=== PATIENT | female | born 1970 | race Caucasian/White ===

== ENCOUNTER 2018-05-18 10:27 | Outpatient (CLI) | payer OTHER | END 2018-05-18 10:28 | disposition home or self-care (01) | LOC: BICMAMMO 10:27 | PROVIDERS: ATTEND Nurse Practitioner Family | DX: Z12.31 Encounter for screening mammogram for malignant neoplasm of breast (principal); Z80.3 Family history of malignant neoplasm of breast | CPT/HCPCS: 77063; 77067 ==

== ENCOUNTER 2018-09-26 14:49 | Outpatient (CLI) | payer OTHER ==
--- NOTE | 2018-09-26 16:34 | RAD ---
RADIOGRAPH LEFT KNEE 4 VIEWS:: Date: 09/26/18 HISTORY: 48-year-old female with acute traumatic pain and swelling of the left knee after fall yesterday. COMPARISON: None. FINDINGS: There is a small joint effusion. No edema in Hoffa's fat pad. Joint spaces are maintained. Tiny osteo phytes at all three compartments. No fracture or dislocation. No destructive osseous lesion. IMPRESSION: 1. Small joint effusion. 2. Minimal/mild tricompartmental osteoarthrosis. 3. No fracture. POS: [facility]
== END 2018-09-26 14:50 | disposition home or self-care (01) ==
LOC: BICRAD 14:49
DX: M25.562 Pain in left knee (principal); M25.462 Effusion, left knee; M17.12 Unilateral primary osteoarthritis, left knee

== ENCOUNTER 2019-07-20 13:09 | Outpatient (CLI) | payer OTHER ==
--- NOTE | 2019-07-20 13:46 | RAD ---
XR Knee Rt 4 View STANDARD HISTORY: Acute pain of the right knee, fell one month ago FINDINGS: No fracture or dislocation is identified. No joint effusion is seen. A anterosuperior patellar enthes ophyte is present.
== END 2019-07-20 13:10 | disposition home or self-care (01) ==
LOC: BICRAD 13:09
PROVIDERS: ATTEND Nurse Practitioner Family
DX: M25.561 Pain in right knee (principal)

== ENCOUNTER 2019-07-31 14:51 | Outpatient (CLI) | payer OTHER ==
--- NOTE | 2019-07-31 17:33 | MRI ---
MRI OF RIGHT KNEE PERFORMED WITHOUT CONTRAST ENHANCEMENT: History: Knee pain. FINDINGS: The anterior as well as posterior cruciate ligaments are intact. The lateral meniscus has a normal shape and appearance. There is a tear involving the posterior horn of the medial meniscus. This has more of a radial orientation along the free aid of the posterior hor n. It has horizontal extension as a horizontally oriented tear or mucoid degeneration into the body o f the meniscus. The medial and lateral collateral ligaments and iliotibial band regions are unremarkable. Patellar articular cartilage shows some grade III to grade IV chondromalacia change in the medial fac et. The medial and lateral patellar retinaculum and quadriceps and patellar tendons are normal. IMPRESSION: Complex tear of the posterior horn and body region of the medial meniscus. This includes more of a ra dially oriented tear through the free edge of the midportion of the posterior horn with horizontal ex tension of the tear into the body of the meniscus. POS: [facility]
== END 2019-07-31 14:52 | disposition home or self-care (01) ==
LOC: SCSMRI 14:51
PROVIDERS: ATTEND Orthopaedic Surgery
DX: M25.561 Pain in right knee (principal); S83.231A Complex tear of medial meniscus, current injury, right knee, initial encounter

== ENCOUNTER 2019-09-28 08:46 | Day surgery (SDC) | payer OTHER ==
[2019-09-27 10:28] VITALS: BMI 30.2
[2019-09-28] MEDS ORDERED: Lidocaine 1% PF 5 ML VIAL ONE (09:34)
[2019-09-28] MEDS ORDERED: Dexamethasone 20 MG/5 ML VIAL ONE (09:34)
[2019-09-28] MEDS ORDERED: Ondansetron PF 4 MG/2 ML Vial ONE (09:34)
[2019-09-28] MEDS ORDERED: ePHEDrine/0.9% NaCl/PF SYRINGE 50 mg/10 ml ONE (09:34)
[2019-09-28] MEDS ORDERED: Metoclopramide HCl 10 MG/2 ML VIAL ONE (09:34)
[2019-09-28] MEDS ORDERED: PROPOFOL 200 MG/20 ML VIAL ONE (09:34)
[2019-09-28] MEDS ORDERED: Famotidine/PF 20 mg/2ml Vial ONE (10:14)
[2019-09-28] MEDS ORDERED: Midazolam HCl 2 mg/2 ml Vial ONE (10:14)
[2019-09-28] MEDS ORDERED: Ketorolac Tromethamine 30 MG/ML VIAL ONE (10:14)
[2019-09-28 10:21] LABS: Hemoglobin 11.5 g/dL (12.0-16.0); Mean Corpuscular HGB CONC 31.3 g/dL (32.0-36.0); Mean Corpuscular Hemoglobin 21.7 pg (27.0-31.0); Mean Corpuscular Volume 69.3 fL (78.0-98.0); Platelet Count 287 thou/uL (130-400); RBC Distribution Width 13.6 % (11.5-14.5); Red Blood Cell (RBC) Count 5.33 mill/uL (4.20-5.40); White Blood Cell (WBC) Count 6.1 thou/uL (4.8-10.8)
[2019-09-28 10:22] LABS: #Basophils 0.1 thou/uL (0.0-0.2); #Eosinphils 0.1 thou/uL (0.0-0.7); #Lymphocytes 2.3 thou/uL (1.20-3.40); #Monocytes 0.6 thou/uL (0.11-0.59); #Neutrophils 3.1 thou/uL (1.40-6.50); %Eosinophils 1.3 % (0.0-10.0); %Monocytes 9.5 % (0.0-10.0); %Neutrophils 51.2 % (42.0-75.0)
[2019-09-28] MEDS ORDERED: Fentanyl 100 MCG/2 ML VIAL ONE ×3 (10:27→11:44)
[2019-09-28] MEDS ORDERED: Lidocaine 1% w/Epinephrine 1:100K 20 ML VIAL ONE (10:35)
[2019-09-28] MEDS ORDERED: Bupivacaine 0.25% HCL 30 ML VIAL ONE (10:35)
[2019-09-28 11:14] LABS: Hypochromia SLIGHT = 6-15 cells (100X) (0-5/hpf); MDiff Complete? YES; Microcytosis MODERATE=15-30 cells (100X) (0-5/hpf); Ovalocytes SLIGHT = 2-5 cells (100X) (0-1/hpf); Platelet Morphology Comment Appears Adequate; Polychromasia SLIGHT = 2-3 cells (100X) (0-2/hpf)
[2019-09-28] MEDS ORDERED: Promethazine HCl 25 MG/ML VIAL IM/IV PRN (12:28)
[2019-09-28] MEDS ORDERED: Non-Formulary Medication 1 EACH PO PRN (12:28)
[2019-09-28] MEDS ORDERED: Ondansetron HCl/PF 4 MG/2 ML Vial IVP PRN (12:28)
--- NOTE | 2019-09-28 14:45 | OP ---
DATE OF PROCEDURE: 09/28/2019 PREOPERATIVE DIAGNOSIS: Right medial meniscus tear with chondromalacia. POSTOPERATIVE DIAGNOSES: 1. Right medial meniscus tear. 2. Grade 3 medial patellar changes. 3. Grade 1 medial femoral condyle changes. PROCEDURE PERFORMED: Medial meniscectomy. METAL BURNISHER: None. ANESTHESIOLOGIST: ANESTHESIA: The patient received a LMA with postprocedure. IMPLANTS: None. TOURNIQUET TIME: 19 minutes at 300 mmHg. ESTIMATED BLOOD LOSS: Less than 20 mL. ANTIBIOTICS: Ancef 2 g. COMPLICATIONS: None. HISTORY OF PRESENT ILLNESS: Ms. La is a 49-year-old female, who presented with knee pain. She has failed conservative measures and had MRI evidence of medial meniscus tear. I discussed with her the risks and benefits of arthroscopic evaluation of medial meniscectomy to include, pain, scar, bleeding, infection, arthritis, need for further surgeries, damage to vital structures, loss of life or limb, blood clots. The patient understood the risks and benefits and elected to proceed. DESCRIPTION OF PROCEDURE: Time-out was performed designating the patient's right lower extremity as the operative site based on site, consents, and marking. After time-out, the patient's right lower extremity was prepped and draped in a sterile fashion table. Tourniquet was brought up and left up for a total of 19 minutes. An anterolateral portal was placed. Medial portal was placed above the meniscus under direct visualization. Fat pad was excised. I saw the ACL and PCL. There was grade 3 changes of the patella noted. On visualization, trochlea looked clean. I looked the medial and lateral gutters, no loose bodies. I looked the lateral compartment, just a mild fraying, but nothing lateral femoral condyle, lateral compartment. Looked medially, there was a radial tear of the patient's medial meniscus in the posterior horn which was documented, as well as some grade 1 changes in the medial femoral condyle. I cleaned up the patient's tear, biting it back to stable remnants. In being happy with completion with my scope, I then washed and closed. The patient will be weightbearing as tolerated. Follow up in clinic. Job ID: [id number]
== END 2019-09-28 14:15 | disposition home or self-care (01) ==
LOC: SDC 08:46
PROVIDERS: ATTEND Orthopaedic Surgery
PROC: 0SBC4ZZ Excision of Right Knee Joint, Percutaneous Endoscopic Approach (ICD-10-PCS; principal; 2019-09-28)
DX: S83.231A Complex tear of medial meniscus, current injury, right knee, initial encounter (principal); M94.261 Chondromalacia, right knee; E21.3 Hyperparathyroidism, unspecified; E66.9 Obesity, unspecified; Z68.30 Body mass index [BMI] 30.0-30.9, adult; Z79.899 Other long term (current) drug therapy
CPT/HCPCS: 85025; J0690; J1100; J1885; J2001; J2250; J2405; J2704; J2765; J3010; S0020; S0028

== ENCOUNTER 2024-07-17 13:26 | Outpatient (CLI) | payer OTHER | END 2024-07-17 13:27 | disposition home or self-care (01) | LOC: SCSRAD 13:26 | PROVIDERS: ATTEND Physician Assistant | DX: M79.671 Pain in right foot (principal); M79.672 Pain in left foot; M79.644 Pain in right finger(s); M54.50 Low back pain, unspecified; M47.816 Spondylosis without myelopathy or radiculopathy, lumbar region; M77.32 Calcaneal spur, left foot; M77.31 Calcaneal spur, right foot | CPT/HCPCS: 72100 ==